=== PATIENT | female | born 1940 | race African-American/Black ===

== ENCOUNTER 2019-04-11 06:05 | Inpatient (IN) | payer MEDICARE, MEDICAID ==
[~2019-04-11] VITALS: Ht 170.2 cm; Wt 111.1 kg
[~2019-04-11 06:05] MED LIST: AMLO10TA80 PO; CALCIUM PO; CARI-166 PO; DOCU-138 PO; HYDR-3512 PO; HYDR-4135 PO; LISI40TA4 PO; METF-414 PO; METOPROLOL PO; ONDA4TAB5 PO; SIMV20TA6 PO
[2019-04-11] MEDS ORDERED: LACTATED RINGERS 1,000 ML IV SCH ×2 (07:00→08:30)
[2019-04-11] MEDS ORDERED: BUPIVACAINE/EPINEPH/PF 0.25%/0.0005 10ML ONE (07:12)
[2019-04-11] MEDS ORDERED: MORPHINE SULFATE/PF 1MG/ML 10ML AMP ONE (07:12)
[2019-04-11] MEDS ORDERED: METHYLENE BLUE 50 MG/10 ML AMP IV ONE (07:12)
[2019-04-11] MEDS ORDERED: NORMAL SALINE 0.9% 10 ML SYR ONE (07:13)
[2019-04-11] MEDS ORDERED: GENTAMICIN SULF 40MG/ML 2ML VIAL ONE (07:13)
[2019-04-11] MEDS ORDERED: VANCOMYCIN HCL 1 GM/VIAL ONE (07:13)
[2019-04-11] MEDS ORDERED: EPINEPHRINE 1:1000 1 MG/ML AMP ONE (07:13)
[2019-04-11] MEDS ORDERED: BACITRACIN 50,000 UNITS/VIAL ONE (07:14)
[2019-04-11] MEDS ORDERED: TRANEXAMIC ACID 1,000 MG in SODIUM CHLORIDE 0.9% 100 ML IV ONE (07:30)
[2019-04-11] MEDS ORDERED: LIDOCAINE HCL/PF 1% 10 MG/ML 5ML VIAL ONE (07:46)
[2019-04-11] MEDS ORDERED: DEXAMETHASONE 4MG/ML 1ML VIAL ONE (07:46)
[2019-04-11] MEDS ORDERED: PROPOFOL 200MG/20ML VIAL IV ONE (07:46)
[2019-04-11] MEDS ORDERED: MIDAZOLAM HCL 2 MG/2 ML VIAL ONE (07:46)
[2019-04-11] MEDS ORDERED: ONDANSETRON HCL 4MG/2ML INJ ONE (07:46)
[2019-04-11] MEDS ORDERED: ROCURONIUM BROMIDE 10MG/ML VIAL 5ML IV ONE ×2 (07:46→08:13)
[2019-04-11] MEDS ORDERED: EPHEDRINE SULFATE 50MG/ML VIAL ONE (07:46)
[2019-04-11] MEDS ORDERED: PHENYLEPHRINE HCL 10 MG/ML 1ML (IV VIAL) IV ONE (07:46)
[2019-04-11] MEDS ORDERED: SUCCINYLCHOLINE CHLORIDE 200MG/10ML IV ONE (07:46)
[2019-04-11] MEDS ORDERED: FENTANYL CITRATE/PF 50MCG/ML 2ML VIAL ONE (07:46)
[2019-04-11] MEDS ORDERED: CEFAZOLIN SODIUM 1000MG/VIAL ONE (07:46)
[2019-04-11] MEDS ORDERED: SODIUM CHLORIDE 0.9% 10ML VIAL ONE (07:46)
[2019-04-11] MEDS ORDERED: GLYCOPYRROLATE 0.2 MG/ML 2ML VIAL ONE (07:46)
[2019-04-11] MEDS ORDERED: NEOSTIGMINE METHYLSULFATE 1MG/ML 10 ML VIAL ONE (07:46)
[2019-04-11] MEDS ORDERED: METOCLOPRAMIDE HCL 10MG/2ML VIAL ONE (07:46)
[2019-04-11] MEDS ORDERED: ROPIVACAINE HCL 10MG/ML 20 ML VIAL EPI ONE (08:04)
[2019-04-11] MEDS ORDERED: HYDROMORPHONE HCL/PF 2MG/ML (OR) ONE (09:10)
[2019-04-11] MEDS ORDERED: THROMBIN (BOVINE) 5000 UNITS/VIAL TOP ONE (10:57)
[2019-04-11] MEDS ORDERED: MEPERIDINE HCL/PF 25MG/ML CPJ IV PRN ×2 (11:45)
[2019-04-11] MEDS ORDERED: MORPHINE SULFATE 2 MG/ML CPJ (NOT FOR IM USE) IV PRN (11:45)
[2019-04-11] MEDS ORDERED: ONDANSETRON HCL 4MG/2ML INJ IV PRN ×3 (11:45→16:30)
[2019-04-11] MEDS ORDERED: LABETALOL HCL 5MG/ML VIAL 20ML IV ONE (11:52)
[2019-04-11] MEDS ORDERED: SODIUM CHLORIDE 0.9% 1,000 ML IV ONE (12:00)
[2019-04-11] MEDS: HYDROMORPHONE HCL/PF 2MG/ML CPJ IV PRN ×4 (12:35→13:35)
[2019-04-11] MEDS ORDERED: HYDROMORPHONE PCA 10MG/50ML IV PRN (13:30)
[2019-04-11] MEDS ORDERED: NALOXONE INJ IV PRN (13:30)
[2019-04-11] MEDS ORDERED: ONDANSETRON INJ IV PRN (13:30)
[2019-04-11] MEDS ORDERED: DIPHENHYDRAMINE INJ IV PRN (13:30)
[2019-04-11] MEDS ORDERED: BENA40TA9 PO (14:04)
[2019-04-11] MEDS ORDERED: ATOR40TA70 PO (14:04)
[2019-04-11] MEDS ORDERED: OLME40TA18 PO (14:04)
[2019-04-11 16:10] VITALS: BP 155/66
[2019-04-11] MEDS ORDERED: MAGNESIUM HYDROXIDE 400MG/5ML 30ML UDC PO PRN (16:30)
[2019-04-11] MEDS ORDERED: HYDROCODONE/ACETAMINOPHEN 10/325MG TABLET PO PRN ×2 (16:30)
[2019-04-11] MEDS ORDERED: CLONIDINE 0.1MG TABLET PO PRN (16:30)
[2019-04-11] MEDS ORDERED: ACETAMINOPHEN 325MG TABLET PO PRN ×2 (16:30)
[2019-04-11] MEDS ORDERED: DIPHENHYDRAMINE 50MG/ML VIAL IM PRN (16:45)
[2019-04-11 20:00] VITALS: BP 142/70
[2019-04-11] MEDS: ATORVASTATIN CALCIUM 40MG TABLET PO SCH (20:47)
[2019-04-11] MEDS: DOCUSATE SODIUM 100MG CAPSULE PO SCH (20:47)
[2019-04-11] MEDS ORDERED: ZOLPIDEM TARTRATE 5MG TABLET PO PRN (21:00)
[2019-04-11] MEDS: CEFAZOLIN 2,000 MG in DEXT 5% WATER 100 ML IV SCH (23:19)
[2019-04-12] VITALS: BP 147/53
[2019-04-12 00:18] LABS: BASOPHILS % 0.3 % (0.0-2.0); EOSINOPHILS % 0.1 % (0.0-5.0); HEMATOCRIT. 30.4 % (36.0-48.0); HEMOGLOBIN. 9.6 g/dL (12.0-16.0); LYMPHOCYTES % 10.3 % (20.0-50.0); MEAN CORPUSCULAR HEMOGLOBIN 26.9 pg (28.0-32.0); MEAN CORPUSCULAR VOLUME 84.8 fL (81.0-99.0); MEAN PLATELET VOLUME 9.6 fl (7.4-10.4); MONOCYTES % 4.1 % (2.0-8.0); NEUTROPHILS % 85.2 % (40.0-76.0); PLATELET 143 x1000/uL (130-400); RED BLOOD CELL COUNT 3.59 mill/uL (4.2-5.4); RED CELL DISTRIBUTION WIDTH 16.4 % (11.6-14.6)
[2019-04-12] MEDS: IPRATROPIUM/ALBUTEROL 0.5-3(2.5)MG/3ML NEB NEB SCH ×4 (00:21→21:25)
[2019-04-12 00:28] LABS: CHLORIDE 113 mEq/L (98-107)
[2019-04-12] MEDS ORDERED: DEXTROSE 50% WATER 50ML SYRINGE IV PRN (01:30)
[2019-04-12 04:00] VITALS: BP 145/64
[2019-04-12] MEDS: CEFAZOLIN 2,000 MG in DEXT 5% WATER 100 ML IV SCH (05:16)
[2019-04-12] MEDS: HYDROCODONE/ACETAMINOPHEN 10/325MG TABLET PO PRN ×4 (05:18→22:18)
[2019-04-12] MEDS: INSULIN LISPRO 100 UNITS/ML SUBCUT SCH ×4 (06:41→21:00)
[2019-04-12 06:46] LABS: HEMATOCRIT. 30.3 % (36.0-48.0); HEMOGLOBIN. 9.6 g/dL (12.0-16.0); MEAN CORPUSCULAR HEMOGLOBIN 26.9 pg (28.0-32.0); MEAN CORPUSCULAR VOLUME 84.3 fL (81.0-99.0); MEAN PLATELET VOLUME 9.8 fl (7.4-10.4); MONOCYTES % 6.8 % (2.0-8.0); NEUTROPHILS % 83.2 % (40.0-76.0); PLATELET 142 x1000/uL (130-400); RED BLOOD CELL COUNT 3.59 mill/uL (4.2-5.4); RED CELL DISTRIBUTION WIDTH 16.7 % (11.6-14.6)
[2019-04-12 06:52] LABS: CHLORIDE 112 mEq/L (98-107)
[2019-04-12 07:06] LABS: LDL CHOLESTEROL 79 mg/dL (5-100)
[2019-04-12 07:07] LABS: HDL CHOLESTEROL 56 mg/dL (40-59)
[2019-04-12] MEDS: BLOOD SUGAR DIAGNOSTIC STRIP TEST SCH ×4 (07:20→21:00)
[2019-04-12 08:00] VITALS: BP 148/57
[2019-04-12] MEDS: DOCUSATE SODIUM 100MG CAPSULE PO SCH ×2 (09:09→16:07)
[2019-04-12] MEDS: AMLODIPINE 10MG TABLET PO SCH (09:10)
[2019-04-12] MEDS: ENOXAPARIN 30MG/0.3ML SYR SUBCUT SCH ×2 (09:11→21:40)
[2019-04-12] MEDS: LISINOPRIL 40MG TABLET PO SCH (09:12)
[2019-04-12 12:00] VITALS: BP 141/46
[2019-04-12 16:00] VITALS: BP 146/60
[2019-04-12 20:00] VITALS: BP 128/46
[2019-04-12] MEDS: ATORVASTATIN CALCIUM 40MG TABLET PO SCH (21:40)
[2019-04-13] VITALS (7 sets, daily range): BP systolic 120–133; BP diastolic 41–49
[2019-04-13] MEDS: IPRATROPIUM/ALBUTEROL 0.5-3(2.5)MG/3ML NEB NEB SCH ×3 (02:21→14:30)
[2019-04-13] MEDS: HYDROCODONE/ACETAMINOPHEN 10/325MG TABLET PO PRN ×2 (04:34→11:15)
[2019-04-13] MEDS: BLOOD SUGAR DIAGNOSTIC STRIP TEST SCH ×2 (07:08→12:38)
[2019-04-13 07:13] LABS: BASOPHILS % 0.3 % (0.0-2.0); EOSINOPHILS % 0.1 % (0.0-5.0); HEMATOCRIT. 25.5 % (36.0-48.0); HEMOGLOBIN. 8.3 g/dL (12.0-16.0); LYMPHOCYTES % 18.7 % (20.0-50.0); MEAN CORPUSCULAR HEMOGLOBIN 27.1 pg (28.0-32.0); MEAN CORPUSCULAR VOLUME 83.6 fL (81.0-99.0); MEAN PLATELET VOLUME 9.7 fl (7.4-10.4); MONOCYTES % 10.7 % (2.0-8.0); NEUTROPHILS % 70.2 % (40.0-76.0); PLATELET 131 x1000/uL (130-400); RED BLOOD CELL COUNT 3.05 mill/uL (4.2-5.4); RED CELL DISTRIBUTION WIDTH 16.5 % (11.6-14.6)
[2019-04-13 07:24] LABS: CHLORIDE 112 mEq/L (98-107)
[2019-04-13] MEDS: INSULIN LISPRO 100 UNITS/ML SUBCUT SCH (07:50)
[2019-04-13] MEDS: AMLODIPINE 10MG TABLET PO SCH (08:50)
[2019-04-13] MEDS: LISINOPRIL 40MG TABLET PO SCH (08:50)
[2019-04-13] MEDS: DOCUSATE SODIUM 100MG CAPSULE PO SCH (08:50)
[2019-04-13] MEDS: ENOXAPARIN 30MG/0.3ML SYR SUBCUT SCH (08:51)
== END 2019-04-13 16:06 | disposition home or self-care (01) | DRG 470 ==
LOC: OR 06:05 → 6EST 19:02
PROVIDERS: ADMIT Orthopaedic Surgery; ATTEND Orthopaedic Surgery
PROC: 0SRC0J9 Replacement of Right Knee Joint with Synthetic Substitute, Cemented, Open Approach (ICD-10-PCS; principal; 2019-04-11)
DX: M17.0 Bilateral primary osteoarthritis of knee (principal); R71.0 Precipitous drop in hematocrit; M75.100 Unspecified rotator cuff tear or rupture of unspecified shoulder, not specified as traumatic; E11.9 Type 2 diabetes mellitus without complications; E66.01 Morbid (severe) obesity due to excess calories; E78.5 Hyperlipidemia, unspecified; I10 Essential (primary) hypertension; G89.29 Other chronic pain; G51.0 Bell's palsy; Z90.10 Acquired absence of unspecified breast and nipple; Z98.51 Tubal ligation status; Z68.38 Body mass index [BMI] 38.0-38.9, adult; Z79.899 Other long term (current) drug therapy
CPT/HCPCS: 36415; 73560; 80048; 80061; 82962; 86850; 86900; 88305; 88311; 93005; 93970; 94640; 97110; 97116; 97162; 97167; 97530; C1713; C1776; J0171; J0330; J0690; J1100; J1170; J1580; J1650; J1815; J2250; J2274; J2370; J2405; J2704; J2710; J2765; J2795; J3010; J3370; J3490; J7050; J7060; J7620; L1830; Q9968

== ENCOUNTER 2019-05-02 19:07 | Emergency (ER) | payer MEDICARE, MEDICAID ==
[~2019-05-02] VITALS: Ht 170.2 cm; Wt 112.0 kg
[~2019-05-02 19:07] MED LIST changes: +ATOR40TA70 PO; +BENA40TA9 PO; -HYDR-4135 PO; -LISI40TA4 PO; -METOPROLOL PO; +OLME40TA18 PO; -SIMV20TA6 PO
[2019-05-02 21:06] LABS: BASOPHILS % 0.8 % (0.0-2.0); HEMATOCRIT. 29.4 % (36.0-48.0); HEMOGLOBIN. 9.3 g/dL (12.0-16.0); LYMPHOCYTES % 23.5 % (20.0-50.0); MEAN CORPUSCULAR HEMOGLOBIN 26.7 pg (28.0-32.0); MEAN CORPUSCULAR VOLUME 84.3 fL (81.0-99.0); MEAN PLATELET VOLUME 8.7 fl (7.4-10.4); MONOCYTES % 8.5 % (2.0-8.0); NEUTROPHILS % 61.2 % (40.0-76.0); PLATELET 299 x1000/uL (130-400); RED BLOOD CELL COUNT 3.48 mill/uL (4.2-5.4); RED CELL DISTRIBUTION WIDTH 17.5 % (11.6-14.6)
[2019-05-02 21:11] LABS: CHLORIDE 109 mEq/L (98-107)
[2019-05-02] MEDS ORDERED: HYDROCODONE/ACETAMINOPHEN 5/325MG TABLET PO ONE (21:45)
[2019-05-02] MEDS ORDERED: KETOROLAC 15MG/ML VIAL IV ONE (21:45)
[2019-05-02 23:48] VITALS: BP 167/58
== END 2019-05-02 23:53 | disposition home or self-care (01) ==
LOC: ER 19:07
DX: D64.9 Anemia, unspecified (principal); R42 Dizziness and giddiness; E11.9 Type 2 diabetes mellitus without complications; I10 Essential (primary) hypertension; Z87.891 Personal history of nicotine dependence; Z79.84 Long term (current) use of oral hypoglycemic drugs; Z79.899 Other long term (current) drug therapy; Z85.9 Personal history of malignant neoplasm, unspecified
CPT/HCPCS: 36415; 71045; 80053; 83880; 84484; 85025; 86850; 86900; 86901; 93005; 96374; 99284; J1885

== ENCOUNTER → 2020-03-12 | Outpatient (CLI) | payer MEDICARE, MEDICAID ==
[~2020-03-12] MED LIST changes: -CARI-166 PO; +CARI350T28 PO
== END | disposition home or self-care (01) ==
LOC: MRI 07:30
PROVIDERS: ATTEND Neurological Surgery
DX: M47.812 Spondylosis without myelopathy or radiculopathy, cervical region (principal); M48.03 Spinal stenosis, cervicothoracic region; N20.0 Calculus of kidney
CPT/HCPCS: 72141; 72146

== ENCOUNTER → 2020-04-06 | Outpatient (CLI) | payer MEDICARE, MEDICAID ==
[~2020-04-06] MED LIST changes: +AMLO10TA80 MT; +BACITRACIN 50,000 UNITS/VIAL ONE; +CHOL500063 PO; +CLON0.1T PO; +HYDR-4005 PO; +LINA290C PO; +THROMBIN (BOVINE) 5000 UNITS/VIAL TOP ONE
== END | disposition home or self-care (01) ==
LOC: LAB 12:00
PROVIDERS: ATTEND Neurological Surgery
DX: Z01.812 Encounter for preprocedural laboratory examination (principal); Z20.828 Contact with and (suspected) exposure to other viral communicable diseases
CPT/HCPCS: C9803; U0003

== ENCOUNTER 2020-04-08 05:20 | Inpatient (IN) | payer MEDICARE, MEDICAID ==
[2020-04-08] VITALS (61 sets, daily range): BP systolic 66–153; BP diastolic 21–75
[~2020-04-08] VITALS: Ht 167.6 cm; Wt 127.0 kg
[~2020-04-08 05:20] MED LIST changes: -AMLO10TA80 MT; -BACITRACIN 50,000 UNITS/VIAL ONE; -CHOL500063 PO; -CLON0.1T PO; -HYDR-4005 PO; -LINA290C PO; -THROMBIN (BOVINE) 5000 UNITS/VIAL TOP ONE
[2020-04-08] MEDS ORDERED: LACTATED RINGERS 1,000 ML IV SCH (06:15)
[2020-04-08] MEDS ORDERED: ONDANSETRON HCL 4MG/2ML INJ IV PRN (09:00)
[2020-04-08] MEDS ORDERED: CLON0.1T PO (09:22)
[2020-04-08] MEDS ORDERED: LINA290C PO (09:22)
[2020-04-08] MEDS ORDERED: HYDR-4005 PO (09:22)
[2020-04-08] MEDS ORDERED: CHOL500063 PO (09:22)
[2020-04-08] MEDS: MORPHINE SULFATE 4 MG/ML CPJ (NOT FOR IM USE) IV PRN (09:39)
[2020-04-08] MEDS: NICARDIPINE 100 MG in SODIUM CHLORIDE 0.9% 60 ML IV PRN ×2 (10:04→17:58)
[2020-04-08] MEDS: DEXT 5%/LACTATED RINGERS 1,000 ML IV SCH ×2 (10:05→18:00)
[2020-04-08] MEDS ORDERED: NALOXONE INJ IV PRN (10:15)
[2020-04-08] MEDS ORDERED: ONDANSETRON INJ IV PRN (10:15)
[2020-04-08] MEDS: HYDROMORPHONE PCA 10MG/50ML IV PRN (10:20)
[2020-04-08] MEDS ORDERED: IPRATROPIUM/ALBUTEROL 0.5-3(2.5)MG/3ML NEB HHN PRN (11:00)
[2020-04-08] MEDS ORDERED: DEXTROSE 50% WATER 50ML SYRINGE IV PRN ×2 (12:30)
[2020-04-08] MEDS ORDERED: PNEUMOCOCCAL 23-VAL P-SAC VAC 0.5 ML IM ONE (13:30)
[2020-04-08] MEDS: DEXAMETHASONE 4MG/ML 1ML VIAL IV SCH ×2 (13:44→17:49)
[2020-04-08] MEDS: CEFAZOLIN 1000MG PREMIX 50 ML IV SCH ×2 (13:46→21:44)
[2020-04-08] MEDS ORDERED: CEFAZOLIN SODIUM 1000MG/VIAL IV SCH (14:00)
[2020-04-08 15:19] LABS: HEMATOCRIT. 32.3 % (36.0-48.0); HEMOGLOBIN. 10.3 g/dL (12.0-16.0); MEAN CORPUSCULAR HEMOGLOBIN 27.5 pg (28.0-32.0); MEAN PLATELET VOLUME 9.3 fl (7.4-10.4); PLATELET 175 x1000/uL (130-400); RED BLOOD CELL COUNT 3.76 mill/uL (4.2-5.4)
[2020-04-08 15:21] LABS: CHLORIDE 108 mEq/L (98-107)
[2020-04-08 15:57] LABS: PLATELET ESTIMATE NORMAL
[2020-04-08] MEDS: BLOOD SUGAR DIAGNOSTIC STRIP TEST SCH ×2 (16:31→21:39)
[2020-04-08] MEDS: INSULIN LISPRO 100 UNITS/ML SUBCUT SCH ×2 (16:44→21:44)
[2020-04-08] MEDS: IPRATROPIUM/ALBUTEROL 0.5-3(2.5)MG/3ML NEB HHN SCH (21:04)
[2020-04-09] VITALS (110 sets, daily range): BP systolic 90–144; BP diastolic 37–77
[2020-04-09] MEDS: DEXAMETHASONE 4MG/ML 1ML VIAL IV SCH ×3 (00:10→12:22)
[2020-04-09] MEDS: NICARDIPINE 100 MG in SODIUM CHLORIDE 0.9% 60 ML IV PRN ×3 (02:31→21:15)
[2020-04-09] MEDS: DEXT 5%/LACTATED RINGERS 1,000 ML IV SCH ×2 (05:02→13:48)
[2020-04-09] MEDS: CEFAZOLIN 1000MG PREMIX 50 ML IV SCH ×3 (05:02→21:14)
[2020-04-09] MEDS: BLOOD SUGAR DIAGNOSTIC STRIP TEST SCH ×4 (06:03→21:09)
[2020-04-09] MEDS: INSULIN LISPRO 100 UNITS/ML SUBCUT SCH ×4 (06:07→21:16)
[2020-04-09 06:36] LABS: CHLORIDE 108 mEq/L (98-107); HEMATOCRIT. 29.9 % (36.0-48.0); HEMOGLOBIN. 9.6 g/dL (12.0-16.0); MEAN CORPUSCULAR HEMOGLOBIN 27.3 pg (28.0-32.0); MEAN CORPUSCULAR VOLUME 84.5 fL (81.0-99.0); MEAN PLATELET VOLUME 9.7 fl (7.4-10.4); PLATELET 189 x1000/uL (130-400); RED BLOOD CELL COUNT 3.53 mill/uL (4.2-5.4)
[2020-04-09] MEDS: PANTOPRAZOLE SODIUM 40 MG/VIAL IV SCH (08:00)
[2020-04-09] MEDS: HYDROMORPHONE PCA 10MG/50ML IV PRN (08:04)
[2020-04-09] MEDS: IPRATROPIUM/ALBUTEROL 0.5-3(2.5)MG/3ML NEB HHN SCH ×3 (08:16→20:10)
[2020-04-09] MEDS ORDERED: AMLO10TA80 MT (08:24)
[2020-04-09] MEDS: LOSARTAN POTASSIUM 100 MG TABLET PO SCH (10:35)
[2020-04-09] MEDS: AMLODIPINE 10MG TABLET PO SCH (10:35)
[2020-04-09] MEDS: CLONIDINE 0.1MG TABLET PO SCH ×2 (10:35→21:15)
[2020-04-09 11:37] LABS: PLATELET ESTIMATE NORMAL
[2020-04-09] MEDS: ATORVASTATIN CALCIUM 40MG TABLET PO SCH (21:14)
[2020-04-10] VITALS (44 sets, daily range): BP systolic 91–146; BP diastolic 32–61
[2020-04-10] MEDS: DEXT 5%/LACTATED RINGERS 1,000 ML IV SCH ×2 (01:03→12:47)
[2020-04-10] MEDS: IPRATROPIUM/ALBUTEROL 0.5-3(2.5)MG/3ML NEB HHN SCH ×4 (01:56→21:12)
[2020-04-10 05:38] LABS: HEMATOCRIT. 28.2 % (36.0-48.0); MEAN CORPUSCULAR HEMOGLOBIN 27.2 pg (28.0-32.0); MEAN CORPUSCULAR VOLUME 85.2 fL (81.0-99.0); MEAN PLATELET VOLUME 9.7 fl (7.4-10.4); PLATELET 181 x1000/uL (130-400); RED BLOOD CELL COUNT 3.31 mill/uL (4.2-5.4); RED CELL DISTRIBUTION WIDTH 17.1 % (11.6-14.6)
[2020-04-10 05:46] LABS: CHLORIDE 108 mEq/L (98-107)
[2020-04-10] MEDS: BLOOD SUGAR DIAGNOSTIC STRIP TEST SCH ×4 (05:54→21:00)
[2020-04-10] MEDS: INSULIN LISPRO 100 UNITS/ML SUBCUT SCH ×4 (06:01→20:59)
[2020-04-10] MEDS: CEFAZOLIN 1000MG PREMIX 50 ML IV SCH ×3 (06:01→21:53)
[2020-04-10] MEDS: AMLODIPINE 10MG TABLET PO SCH (08:00)
[2020-04-10] MEDS: LOSARTAN POTASSIUM 100 MG TABLET PO SCH (08:00)
[2020-04-10] MEDS: CLONIDINE 0.1MG TABLET PO SCH ×2 (08:01→20:46)
[2020-04-10] MEDS: PANTOPRAZOLE SODIUM 40 MG/VIAL IV SCH (08:01)
[2020-04-10 10:45] LABS: PLATELET ESTIMATE NORMAL
[2020-04-10] MEDS: MORPHINE SULFATE 4 MG/ML CPJ (NOT FOR IM USE) IV PRN ×5 (12:48→23:47)
[2020-04-10] MEDS: ATORVASTATIN CALCIUM 40MG TABLET PO SCH (20:46)
[2020-04-11] VITALS (7 sets, daily range): BP systolic 120–132; BP diastolic 56–63
[2020-04-11] MEDS: DEXT 5%/LACTATED RINGERS 1,000 ML IV SCH ×2 (02:40→09:38)
[2020-04-11] MEDS: MORPHINE SULFATE 4 MG/ML CPJ (NOT FOR IM USE) IV PRN ×4 (02:41→14:11)
[2020-04-11] MEDS: IPRATROPIUM/ALBUTEROL 0.5-3(2.5)MG/3ML NEB HHN SCH ×3 (02:51→15:09)
[2020-04-11] MEDS: BLOOD SUGAR DIAGNOSTIC STRIP TEST SCH ×4 (06:30→21:47)
[2020-04-11] MEDS: CEFAZOLIN 1000MG PREMIX 50 ML IV SCH ×3 (06:30→21:04)
[2020-04-11] MEDS: INSULIN LISPRO 100 UNITS/ML SUBCUT SCH ×4 (06:55→21:00)
[2020-04-11] MEDS: CLONIDINE 0.1MG TABLET PO SCH ×2 (09:37→21:01)
[2020-04-11] MEDS: PANTOPRAZOLE SODIUM 40 MG/VIAL IV SCH (09:37)
[2020-04-11] MEDS: LOSARTAN POTASSIUM 100 MG TABLET PO SCH (09:37)
[2020-04-11] MEDS: AMLODIPINE 10MG TABLET PO SCH (09:37)
[2020-04-11] MEDS ORDERED: AMLODIPINE 10MG TABLET PO ONE (12:00)
[2020-04-11] MEDS ORDERED: DEXTROSE 50% WATER 50ML SYRINGE IV PRN (12:00)
[2020-04-11] MEDS ORDERED: INSULIN LISPRO 100 UNITS/ML SUBCUT SCH (12:15)
[2020-04-11] MEDS: HYDROCODONE/ACETAMINOPHEN 5/325MG TABLET PO PRN ×2 (15:44→21:04)
[2020-04-11] MEDS ORDERED: BLOOD SUGAR DIAGNOSTIC STRIP TEST SCH (16:45)
[2020-04-11] MEDS ORDERED: LACTULOSE 20G/30ML UDC PO NR (17:14)
[2020-04-11] MEDS ORDERED: BISACODYL 5MG TABLET PO PRN (17:15)
[2020-04-11] MEDS: DOCUSATE SODIUM 250MG CAPSULE PO SCH (18:24)
[2020-04-11] MEDS: ATORVASTATIN CALCIUM 40MG TABLET PO SCH (21:00)
[2020-04-12] VITALS (7 sets, daily range): BP systolic 118–142; BP diastolic 54–82
[2020-04-12] MEDS: IPRATROPIUM/ALBUTEROL 0.5-3(2.5)MG/3ML NEB HHN SCH ×4 (00:08→13:40)
[2020-04-12] MEDS: HYDROCODONE/ACETAMINOPHEN 5/325MG TABLET PO PRN ×3 (02:10→10:24)
[2020-04-12] MEDS: CEFAZOLIN 1000MG PREMIX 50 ML IV SCH ×2 (06:01→13:52)
[2020-04-12] MEDS: BLOOD SUGAR DIAGNOSTIC STRIP TEST SCH ×3 (06:04→16:39)
[2020-04-12] MEDS: INSULIN LISPRO 100 UNITS/ML SUBCUT SCH ×3 (06:04→16:39)
[2020-04-12] MEDS: DOCUSATE SODIUM 250MG CAPSULE PO SCH (08:46)
[2020-04-12] MEDS: CLONIDINE 0.1MG TABLET PO SCH (08:46)
[2020-04-12] MEDS: PANTOPRAZOLE SODIUM 40 MG/VIAL IV SCH (08:46)
[2020-04-12] MEDS: LOSARTAN POTASSIUM 100 MG TABLET PO SCH (08:46)
[2020-04-12] MEDS: AMLODIPINE 10MG TABLET PO SCH (08:47)
[2020-04-12] MEDS ORDERED: HYDROCODONE/APAP 7.5/325MG 1 TAB TABLET PO PRN (14:15)
[2020-04-12] MEDS: LACTULOSE 20G/30ML UDC PO SCH ×2 (14:19→16:39)
[2020-04-12] MEDS ORDERED: POLYETHYLENE GLYCOL 3350 (17GM) 1 DOSE PACK PO SCH (21:00)
[2020-04-13] MEDS ORDERED: DOCUSATE SODIUM 100MG CAPSULE PO SCH (09:00)
== END 2020-04-12 20:30 | DRG 471 ==
LOC: OR 05:20 → MICUNO 05:21 → 5WST 04-10 12:08
PROVIDERS: ADMIT Internal Medicine; ATTEND Internal Medicine
PROC: 0RG20J1 Fusion of 2 or more Cervical Vertebral Joints with Synthetic Substitute, Posterior Approach, Posterior Column, Open Approach (ICD-10-PCS; principal; 2020-04-08)
PROC: 01N10ZZ Release Cervical Nerve, Open Approach (ICD-10-PCS; 2020-04-08)
DX: M48.02 Spinal stenosis, cervical region (principal); G82.50 Quadriplegia, unspecified; M47.12 Other spondylosis with myelopathy, cervical region; Z68.42 Body mass index [BMI] 45.0-49.9, adult; M50.10 Cervical disc disorder with radiculopathy, unspecified cervical region; I10 Essential (primary) hypertension; E78.5 Hyperlipidemia, unspecified; E11.9 Type 2 diabetes mellitus without complications; C50.919 Malignant neoplasm of unspecified site of unspecified female breast; D64.9 Anemia, unspecified; R13.10 Dysphagia, unspecified; R53.81 Other malaise; D72.829 Elevated white blood cell count, unspecified; G89.4 Chronic pain syndrome; K59.00 Constipation, unspecified; E66.01 Morbid (severe) obesity due to excess calories; Z96.651 Presence of right artificial knee joint; Z85.3 Personal history of malignant neoplasm of breast; Z79.899 Other long term (current) drug therapy
CPT/HCPCS: 36415; 71045; 72040; 72141; 76000; 80048; 80053; 82962; 83036; 85025; 86850; 86900; 88304; 88311; 92610; 93970; 93971; 94640; 97110; 97116; 97162; 97166; 97530; 97535; C1713; C9113; J0690; J1100; J1170; J1815; J2250; J2270; J2405; J2704; J2710; J3010; J3490; J7050; J7121; L0172

== ENCOUNTER → 2020-06-21 | Outpatient (CLI) | payer MEDICARE, MEDICAID ==
[~2020-06-21] MED LIST changes: -CALCIUM PO; -CARI350T28 PO; +CHOL500063 PO; +CLON0.1T PO; -DOCU-138 PO; -HYDR-3512 PO; +HYDR-4005 PO; +LINA290C PO; -METF-414 PO; -ONDA4TAB5 PO
== END | disposition home or self-care (01) ==
LOC: RAD 16:26
PROVIDERS: ATTEND Neurological Surgery
DX: M43.12 Spondylolisthesis, cervical region (principal); M40.202 Unspecified kyphosis, cervical region
CPT/HCPCS: 72052

== ENCOUNTER → 2020-08-22 | Outpatient (CLI) | payer MEDICARE, MEDICAID | END | disposition home or self-care (01) | LOC: MRI 12:54 | PROVIDERS: ATTEND Neurological Surgery | DX: M51.27 Other intervertebral disc displacement, lumbosacral region (principal); M51.46 Schmorl's nodes, lumbar region; M47.816 Spondylosis without myelopathy or radiculopathy, lumbar region; M48.061 Spinal stenosis, lumbar region without neurogenic claudication | CPT/HCPCS: 72148 ==

== ENCOUNTER → 2020-09-11 | Outpatient (CLI) | payer MEDICARE, MEDICAID | END | disposition home or self-care (01) | LOC: MRI 10:46 | PROVIDERS: ATTEND Neurological Surgery | DX: M50.31 Other cervical disc degeneration, high cervical region (principal); M25.78 Osteophyte, vertebrae; M50.23 Other cervical disc displacement, cervicothoracic region; M48.03 Spinal stenosis, cervicothoracic region | CPT/HCPCS: 72141 ==

== ENCOUNTER → 2020-10-18 | Outpatient (CLI) | payer MEDICARE, MEDICAID | END | disposition home or self-care (01) | LOC: RAD 13:40 | PROVIDERS: ATTEND Neurological Surgery | DX: Z01.812 Encounter for preprocedural laboratory examination (principal); Z20.822 Contact with and (suspected) exposure to COVID-19 | CPT/HCPCS: 71045; 87426 ==

== ENCOUNTER 2020-10-21 05:42 | Inpatient (IN) | payer MEDICARE, MEDICAID ==
[~2020-10-21] VITALS: Ht 165.1 cm; Wt 112.5 kg
[2020-10-21] MEDS ORDERED: THROMBIN (BOVINE) 5000 UNITS/VIAL TOP ONE (06:35)
[2020-10-21] MEDS ORDERED: GENTAMICIN SULF 40MG/ML 2ML VIAL ONE (06:35)
[2020-10-21] MEDS ORDERED: ROCURONIUM BROMIDE 10MG/ML VIAL 5ML IV ONE ×2 (07:23→09:07)
[2020-10-21] MEDS ORDERED: HYDROMORPHONE HCL/PF 2MG/ML (OR) ONE (07:23)
[2020-10-21] MEDS ORDERED: ALBUMIN HUMAN 25GM/100ML (25%) IV ONE (07:39)
[2020-10-21] MEDS ORDERED: CEFAZOLIN SODIUM 1000MG/VIAL ONE (08:47)
[2020-10-21] MEDS ORDERED: HYDRALAZINE 20MG/ML VIAL ONE (08:47)
[2020-10-21] MEDS ORDERED: DEXAMETHASONE 4MG/ML 1ML VIAL ONE (08:47)
[2020-10-21] MEDS ORDERED: EPHEDRINE SULFATE 50MG/ML VIAL ONE (08:47)
[2020-10-21] MEDS ORDERED: HYDR25TA PO (09:19)
[2020-10-21] MEDS ORDERED: GABA-290 PO (09:19)
[2020-10-21] MEDS ORDERED: ERGO500013 PO (09:21)
[2020-10-21] MEDS ORDERED: NEOSTIGMINE METHYLSULFATE 1MG/ML 10 ML VIAL ONE (09:37)
[2020-10-21] MEDS ORDERED: GLYCOPYRROLATE 0.2 MG/ML 2ML VIAL ONE (09:37)
[2020-10-21] MEDS ORDERED: LABETALOL HCL 5MG/ML VIAL 20ML IV ONE (09:40)
[2020-10-21] MEDS ORDERED: HYDROCODONE/ACETAMINOPHEN 5/325MG TABLET PO PRN (09:45)
[2020-10-21] MEDS ORDERED: MORPHINE SULFATE 4 MG/ML CPJ (NOT FOR IM USE) IV PRN (09:45)
[2020-10-21] MEDS ORDERED: HYDRALAZINE 20MG/ML VIAL IV PRN (09:45)
[2020-10-21] MEDS ORDERED: MEPERIDINE HCL/PF 25MG/ML CPJ IV PRN (10:00)
[2020-10-21] MEDS ORDERED: ONDANSETRON HCL 4MG/2ML INJ IV PRN (10:00)
[2020-10-21] MEDS ORDERED: LABETALOL 5MG/ML SYR 20 MG/4 ML SYRINGE IV PRN (10:00)
[2020-10-21] MEDS ORDERED: NALOXONE INJ IV PRN (10:30)
[2020-10-21] MEDS ORDERED: ONDANSETRON INJ IV PRN (10:30)
[2020-10-21] MEDS ORDERED: DIPHENHYDRAMINE INJ IV PRN (10:30)
[2020-10-21] MEDS: HYDROMORPHONE HCL/PF 2MG/ML CPJ IV PRN ×5 (10:33→11:28)
[2020-10-21] MEDS: HYDROMORPHONE PCA 10MG/50ML IV PRN (12:04)
[2020-10-21 12:55] VITALS: BP 136/51
[2020-10-21] MEDS ORDERED: CEFAZOLIN SODIUM 1000MG/VIAL IV SCH (14:00)
[2020-10-21] MEDS ORDERED: BLOOD PRESSURE (15:00)
[2020-10-21] MEDS ORDERED: CHOL400D7 PO (15:00)
[2020-10-21 16:00] VITALS: BP 115/57
[2020-10-21] MEDS ORDERED: IPRATROPIUM/ALBUTEROL 0.5-3(2.5)MG/3ML NEB HHN PRN (16:00)
[2020-10-21] MEDS: CEFAZOLIN 1000MG PREMIX 50 ML IV SCH ×2 (16:05→23:14)
[2020-10-21 20:00] VITALS: BP 125/50
[2020-10-21] MEDS: AMLODIPINE 10MG TABLET PO SCH (23:13)
[2020-10-21] MEDS: BENAZEPRIL 10MG TABLET PO SCH (23:14)
[2020-10-22] VITALS: BP 129/58
[2020-10-22 04:00] VITALS: BP 136/56
[2020-10-22] MEDS: DEXT 5%/LACTATED RINGERS 1,000 ML IV SCH ×2 (04:19→15:31)
[2020-10-22] MEDS: CEFAZOLIN 1000MG PREMIX 50 ML IV SCH ×3 (06:06→22:05)
[2020-10-22 06:35] LABS: HEMATOCRIT. 27.5 % (36.0-48.0); HEMOGLOBIN. 8.6 g/dL (12.0-16.0); LYMPHOCYTES % 7.2 % (20.0-50.0); MEAN CORPUSCULAR HEMOGLOBIN 25.4 pg (28.0-32.0); MEAN CORPUSCULAR VOLUME 81.5 fL (81.0-99.0); MEAN PLATELET VOLUME 9.5 fl (7.4-10.4); NEUTROPHILS % 89.8 % (40.0-76.0); PLATELET 132 x1000/uL (130-400); RED BLOOD CELL COUNT 3.37 mill/uL (4.2-5.4)
[2020-10-22 08:00] VITALS: BP 120/40
[2020-10-22] MEDS ORDERED: LACTULOSE 20G/30ML UDC PO PRN (09:30)
[2020-10-22] MEDS ORDERED: SODIUM POLYSTYRENE SULFONATE 15 G/60 ML BOT PO ONE (09:30)
[2020-10-22] MEDS: BENAZEPRIL 10MG TABLET PO SCH (09:31)
[2020-10-22] MEDS: AMLODIPINE 10MG TABLET PO SCH (09:32)
[2020-10-22] MEDS ORDERED: SODIUM POLYSTYRENE SULFONATE 15 G/60 ML BOT PO SCH (10:00)
[2020-10-22 12:00] VITALS: BP 140/64
[2020-10-22 16:00] VITALS: BP 136/51
[2020-10-22 20:00] VITALS: BP 145/67
[2020-10-23] VITALS (7 sets, daily range): BP systolic 116–157; BP diastolic 46–66
[2020-10-23] MEDS: DEXT 5%/LACTATED RINGERS 1,000 ML IV SCH ×3 (02:49→22:00)
[2020-10-23] MEDS ORDERED: ACETAMINOPHEN 325MG TABLET PO PRN (04:00)
[2020-10-23] MEDS: ACETAMINOPHEN 325MG TABLET PO PRN ×3 (04:02→19:01)
[2020-10-23] MEDS: CEFAZOLIN 1000MG PREMIX 50 ML IV SCH (06:09)
[2020-10-23 06:23] LABS: BASOPHILS % 0.1 % (0.0-2.0); EOSINOPHILS % 0.1 % (0.0-5.0); HEMATOCRIT. 27.1 % (36.0-48.0); HEMOGLOBIN. 8.5 g/dL (12.0-16.0); LYMPHOCYTES % 14.5 % (20.0-50.0); MEAN CORPUSCULAR HEMOGLOBIN 25.6 pg (28.0-32.0); MEAN CORPUSCULAR VOLUME 81.2 fL (81.0-99.0); MEAN PLATELET VOLUME 9.6 fl (7.4-10.4); MONOCYTES % 7.7 % (2.0-8.0); NEUTROPHILS % 77.6 % (40.0-76.0); PLATELET 127 x1000/uL (130-400); RED BLOOD CELL COUNT 3.34 mill/uL (4.2-5.4); RED CELL DISTRIBUTION WIDTH 17.6 % (11.6-14.6)
[2020-10-23 06:29] LABS: CHLORIDE 108 mEq/L (98-107)
[2020-10-23 06:50] LABS: CLARITY URINE CLEAR (CLEAR); COLOR URINE YELLOW (YELLOW); KETONES URINE NEGATIVE (NEGATIVE); LEUKOCYTE ESTERASE URINE NEGATIVE (NEGATIVE); NITRITE URINE NEGATIVE (NEGATIVE); OCCULT BLOOD URINE 1+ (NEGATIVE); PH URINE 7.5 (4.5-8.0); PROTEIN URINE NEGATIVE (NEGATIVE); SPECIFIC GRAVITY URINE 1.007 (1.005-1.030); UROBILINOGEN URINE 0.2 E.U./dL (0.2-1.0)
[2020-10-23] MEDS: AMLODIPINE 10MG TABLET PO SCH (10:46)
[2020-10-23] MEDS: BENAZEPRIL 10MG TABLET PO SCH (10:46)
[2020-10-23 11:07] LABS: HEMATOCRIT 27.1 % (36.0-48.0); HEMOGLOBIN 8.6 g/dL (12.0-16.0); MEAN CORPUSCULAR HEMOGLOBIN 26.2 pg (28.0-32.0); MEAN CORPUSCULAR VOLUME 82.1 fL (81.0-99.0); PLATELET 130 x1000/uL (130-400); RED BLOOD CELL COUNT 3.29 mill/uL (4.2-5.4); RED CELL DISTRIBUTION WIDTH 17.6 % (11.6-14.6)
[2020-10-23] MEDS: PIPERACILLIN/TAZOBACTAM 3.375 G in DEXT 5% WATER 100 ML IV SCH ×2 (13:15→17:36)
[2020-10-23] MEDS ORDERED: PIPERACILLIN/TAZOBACTAM 3.375 G/VIAL IV SCH (14:00)
[2020-10-23] MEDS ORDERED: HYDRALAZINE 5 MG in SODIUM CHLORIDE 0.9% 49.75 ML IV PRN (21:15)
[2020-10-24] VITALS (8 sets, daily range): BP systolic 100–165; BP diastolic 42–71
[2020-10-24] MEDS: PIPERACILLIN/TAZOBACTAM 3.375 G in DEXT 5% WATER 100 ML IV SCH ×4 (00:32→17:52)
[2020-10-24] MEDS: ACETAMINOPHEN 325MG TABLET PO PRN (04:52)
[2020-10-24] MEDS: DEXT 5%/LACTATED RINGERS 1,000 ML IV SCH (08:56)
[2020-10-24] MEDS: BENAZEPRIL 10MG TABLET PO SCH (08:57)
[2020-10-24] MEDS: AMLODIPINE 10MG TABLET PO SCH (08:57)
[2020-10-24] MEDS ORDERED: LACTULOSE 20G/30ML UDC PO PRN (09:45)
[2020-10-24] MEDS: HYDROMORPHONE PCA 10MG/50ML IV PRN (10:47)
[2020-10-24] MEDS: PANTOPRAZOLE SODIUM 40 MG/VIAL IV SCH (12:28)
[2020-10-25] VITALS (8 sets, daily range): BP systolic 97–159; BP diastolic 41–66
[2020-10-25] MEDS: PIPERACILLIN/TAZOBACTAM 3.375 G in DEXT 5% WATER 100 ML IV SCH ×2 (00:24→06:33)
[2020-10-25] MEDS: ACETAMINOPHEN 325MG TABLET PO PRN (00:34)
[2020-10-25] MEDS: DEXT 5%/LACTATED RINGERS 1,000 ML IV SCH (03:00)
[2020-10-25 07:45] LABS: BASOPHILS % 0.4 % (0.0-2.0); EOSINOPHILS % 2.5 % (0.0-5.0); HEMATOCRIT. 27.2 % (36.0-48.0); HEMOGLOBIN. 8.8 g/dL (12.0-16.0); MEAN CORPUSCULAR HEMOGLOBIN 25.8 pg (28.0-32.0); MEAN PLATELET VOLUME 9.5 fl (7.4-10.4); MONOCYTES % 7.5 % (2.0-8.0); NEUTROPHILS % 63.6 % (40.0-76.0); PLATELET 148 x1000/uL (130-400); RED CELL DISTRIBUTION WIDTH 16.9 % (11.6-14.6)
[2020-10-25] MEDS: AMLODIPINE 10MG TABLET PO SCH (09:00)
[2020-10-25] MEDS: BENAZEPRIL 10MG TABLET PO SCH (09:00)
[2020-10-25] MEDS ORDERED: POTASSIUM CHLORIDE 20MEQ TABLET SR PO NR (09:30)
[2020-10-25] MEDS: PANTOPRAZOLE SODIUM 40 MG/VIAL IV SCH (10:00)
== END 2020-10-25 21:43 | DRG 516 ==
LOC: OR 05:42 → 6EST 12:49
PROVIDERS: ADMIT Neurological Surgery; ATTEND Neurological Surgery
PROC: 01NB0ZZ Release Lumbar Nerve, Open Approach (ICD-10-PCS; principal; 2020-10-21)
PROC: 4A11X4Z Monitoring of Peripheral Nervous Electrical Activity, External Approach (ICD-10-PCS; 2020-10-21)
DX: M48.061 Spinal stenosis, lumbar region without neurogenic claudication (principal); Z68.41 Body mass index [BMI] 40.0-44.9, adult; J98.11 Atelectasis; M54.16 Radiculopathy, lumbar region; I12.9 Hypertensive chronic kidney disease with stage 1 through stage 4 chronic kidney disease, or unspecified chronic kidney disease; N18.9 Chronic kidney disease, unspecified; E87.5 Hyperkalemia; M19.019 Primary osteoarthritis, unspecified shoulder; E66.01 Morbid (severe) obesity due to excess calories; G89.4 Chronic pain syndrome; D64.9 Anemia, unspecified; E11.22 Type 2 diabetes mellitus with diabetic chronic kidney disease; E78.5 Hyperlipidemia, unspecified; R32 Unspecified urinary incontinence; Z96.651 Presence of right artificial knee joint; Z85.3 Personal history of malignant neoplasm of breast
CPT/HCPCS: 36415; 71045; 72100; 76000; 80048; 81003; 82962; 85025; 85027; 86850; 86900; 87426; 88304; 88311; 93970; 95863; 95925; 95926; 95928; 95929; 95940; 97116; 97162; 97166; 97530; 97535; C9113; J0360; J0690; J1100; J1170; J1580; J2175; J2270; J2405; J2543; J2710; J3490; J7060; J7121; P9047

== ENCOUNTER 2020-10-25 21:45 | Inpatient (IN) | payer MEDICARE, MEDICAID ==
[~2020-10-25] VITALS: Ht 165.1 cm; Wt 112.5 kg
[~2020-10-25 21:45] MED LIST changes: +BLOOD PRESSURE; +CHOL400D7 PO; -CHOL500063 PO; +ERGO500013 PO; +GABA-290 PO; +HYDR25TA PO; -LINA290C PO; -OLME40TA18 PO
[2020-10-25 22:00] VITALS: BP 148/71
[2020-10-25] MEDS ORDERED: LACTULOSE 20G/30ML UDC PO PRN (23:15)
[2020-10-25] MEDS ORDERED: ACETAMINOPHEN 325MG TABLET PO PRN ×2 (23:15)
[2020-10-25] MEDS ORDERED: IPRATROPIUM/ALBUTEROL 0.5-3(2.5)MG/3ML NEB HHN PRN (23:15)
[2020-10-26] MEDS: HYDROCODONE/ACETAMINOPHEN 5/325MG TABLET PO PRN ×3 (00:17→16:29)
[2020-10-26] MEDS: MORPHINE SULFATE 4 MG/ML CPJ (NOT FOR IM USE) IV PRN ×2 (04:12→13:00)
[2020-10-26 07:51] LABS: BASOPHILS % 0.6 % (0.0-2.0); EOSINOPHILS % 2.7 % (0.0-5.0); HEMATOCRIT. 27.9 % (36.0-48.0); HEMOGLOBIN. 9.2 g/dL (12.0-16.0); LYMPHOCYTES % 27.3 % (20.0-50.0); MEAN CORPUSCULAR HEMOGLOBIN 26.4 pg (28.0-32.0); MEAN CORPUSCULAR VOLUME 80.1 fL (81.0-99.0); MEAN PLATELET VOLUME 9.3 fl (7.4-10.4); MONOCYTES % 9.9 % (2.0-8.0); NEUTROPHILS % 59.5 % (40.0-76.0); PLATELET 173 x1000/uL (130-400); RED BLOOD CELL COUNT 3.49 mill/uL (4.2-5.4)
[2020-10-26 08:00] VITALS: BP 138/59
[2020-10-26] MEDS: BENAZEPRIL 10MG TABLET PO SCH (08:40)
[2020-10-26] MEDS: PANTOPRAZOLE SODIUM 40 MG/VIAL IV SCH (08:40)
[2020-10-26] MEDS: AMLODIPINE 10MG TABLET PO SCH (08:41)
[2020-10-26 08:59] LABS: CHLORIDE 105 mEq/L (98-107)
[2020-10-26] MEDS ORDERED: NA PHOS,M-B/NA PHOS,DI-BA ENEMA 118ML PR PRN (16:00)
[2020-10-26] MEDS ORDERED: LACTULOSE 20G/30ML UDC PO PRN (16:00)
[2020-10-26] MEDS: DOCUSATE SODIUM 100MG CAPSULE PO SCH (16:28)
[2020-10-26] MEDS: BISACODYL 5MG TABLET PO PRN (17:13)
[2020-10-26 20:00] VITALS: BP 122/47
[2020-10-27] MEDS: MORPHINE SULFATE 4 MG/ML CPJ (NOT FOR IM USE) IV PRN ×2 (00:11→14:59)
[2020-10-27 01:00] VITALS: BP 155/52
[2020-10-27] MEDS: BISACODYL 5MG TABLET PO PRN (06:25)
[2020-10-27] MEDS: HYDROCODONE/ACETAMINOPHEN 5/325MG TABLET PO PRN ×2 (06:26→21:26)
[2020-10-27 07:56] VITALS: BP 138/50
[2020-10-27] MEDS ORDERED: LACTULOSE 20G/30ML UDC PO SCH (08:00)
[2020-10-27] MEDS: PANTOPRAZOLE SODIUM 40 MG/VIAL IV SCH (08:24)
[2020-10-27] MEDS: BENAZEPRIL 10MG TABLET PO SCH (08:24)
[2020-10-27] MEDS: AMLODIPINE 10MG TABLET PO SCH (08:24)
[2020-10-27] MEDS: DOCUSATE SODIUM 100MG CAPSULE PO SCH ×2 (08:26→17:00)
[2020-10-27 20:00] VITALS: BP 162/73
[2020-10-28] MEDS: PANTOPRAZOLE 40MG DR TABLET PO SCH (06:00)
[2020-10-28] MEDS: HYDROCODONE/ACETAMINOPHEN 5/325MG TABLET PO PRN (06:06)
[2020-10-28 06:34] LABS: CHLORIDE 105 mEq/L (98-107)
[2020-10-28 06:39] LABS: BASOPHILS % 0.6 % (0.0-2.0); HEMATOCRIT. 28.2 % (36.0-48.0); LYMPHOCYTES % 27.1 % (20.0-50.0); MEAN CORPUSCULAR HEMOGLOBIN 26.1 pg (28.0-32.0); MEAN CORPUSCULAR VOLUME 81.8 fL (81.0-99.0); MEAN PLATELET VOLUME 9.1 fl (7.4-10.4); MONOCYTES % 10.7 % (2.0-8.0); NEUTROPHILS % 59.6 % (40.0-76.0); PLATELET 195 x1000/uL (130-400); RED BLOOD CELL COUNT 3.45 mill/uL (4.2-5.4); RED CELL DISTRIBUTION WIDTH 16.9 % (11.6-14.6)
[2020-10-28 07:59] VITALS: BP 138/45
[2020-10-28] MEDS: BENAZEPRIL 10MG TABLET PO SCH (08:10)
[2020-10-28] MEDS: AMLODIPINE 10MG TABLET PO SCH (08:10)
[2020-10-28] MEDS: MORPHINE SULFATE 4 MG/ML CPJ (NOT FOR IM USE) IV PRN ×2 (08:16→15:05)
[2020-10-28] MEDS: DOCUSATE SODIUM 100MG CAPSULE PO SCH ×2 (08:16→16:16)
[2020-10-28 20:00] VITALS: BP 136/54
[2020-10-29] MEDS: HYDROCODONE/ACETAMINOPHEN 5/325MG TABLET PO PRN ×3 (01:52→22:20)
[2020-10-29] MEDS: PANTOPRAZOLE 40MG DR TABLET PO SCH (06:27)
[2020-10-29 08:25] VITALS: BP 122/47
[2020-10-29] MEDS: AMLODIPINE 10MG TABLET PO SCH (08:36)
[2020-10-29] MEDS: BENAZEPRIL 10MG TABLET PO SCH (08:36)
[2020-10-29] MEDS: MORPHINE SULFATE 4 MG/ML CPJ (NOT FOR IM USE) IV PRN (08:39)
[2020-10-29] MEDS: DOCUSATE SODIUM 100MG CAPSULE PO SCH ×2 (08:39→17:00)
[2020-10-29 20:00] VITALS: BP 140/49
[2020-10-30] MEDS: HYDROCODONE/ACETAMINOPHEN 5/325MG TABLET PO PRN ×2 (06:35→18:45)
[2020-10-30 07:54] VITALS: BP 127/52
[2020-10-30] MEDS: DOCUSATE SODIUM 100MG CAPSULE PO SCH ×3 (09:00→17:36)
[2020-10-30] MEDS: AMLODIPINE 10MG TABLET PO SCH (11:06)
[2020-10-30] MEDS: BENAZEPRIL 10MG TABLET PO SCH (11:06)
[2020-10-30] MEDS: FAMOTIDINE 20MG TABLET PO SCH ×2 (11:07→20:43)
[2020-10-30 20:00] VITALS: BP 149/50
[2020-10-31] MEDS ORDERED: MORPHINE SULFATE 4 MG/ML CPJ (NOT FOR IM USE) IV PRN (06:00)
[2020-10-31] MEDS ORDERED: HYDROCODONE/ACETAMINOPHEN 5/325MG TABLET PO PRN (06:00)
[2020-10-31 08:00] VITALS: BP 134/44
[2020-10-31] MEDS: DOCUSATE SODIUM 100MG CAPSULE PO SCH ×3 (09:00→17:00)
[2020-10-31] MEDS: FAMOTIDINE 20MG TABLET PO SCH ×2 (09:02→21:40)
[2020-10-31] MEDS: AMLODIPINE 10MG TABLET PO SCH (09:08)
[2020-10-31] MEDS: BENAZEPRIL 10MG TABLET PO SCH (09:08)
[2020-10-31] MEDS: ONDANSETRON HCL 4MG/2ML INJ IV PRN (15:02)
[2020-10-31] MEDS: MORPHINE SULFATE 4 MG/ML CPJ (NOT FOR IM USE) IV PRN ×2 (18:28→23:41)
[2020-10-31 20:00] VITALS: BP 138/60
[2020-11-01] MEDS: MORPHINE SULFATE 4 MG/ML CPJ (NOT FOR IM USE) IV PRN (07:16)
[2020-11-01 08:00] VITALS: BP 119/49
[2020-11-01] MEDS: FAMOTIDINE 20MG TABLET PO SCH ×2 (08:23→21:18)
[2020-11-01] MEDS: DOCUSATE SODIUM 100MG CAPSULE PO SCH ×3 (08:23→16:54)
[2020-11-01] MEDS: AMLODIPINE 10MG TABLET PO SCH (08:24)
[2020-11-01] MEDS: BENAZEPRIL 10MG TABLET PO SCH (08:24)
[2020-11-01] MEDS: ONDANSETRON HCL 4MG/2ML INJ IV PRN (17:23)
[2020-11-01 20:00] VITALS: BP 138/47
[2020-11-02] MEDS: HYDROCODONE/ACETAMINOPHEN 5/325MG TABLET PO PRN ×2 (06:51→20:17)
[2020-11-02 06:55] LABS: BASOPHILS % 0.8 % (0.0-2.0); EOSINOPHILS % 2.2 % (0.0-5.0); HEMOGLOBIN. 9.2 g/dL (12.0-16.0); LYMPHOCYTES % 32.8 % (20.0-50.0); MEAN CORPUSCULAR HEMOGLOBIN 26.2 pg (28.0-32.0); MEAN CORPUSCULAR VOLUME 82.3 fL (81.0-99.0); MEAN PLATELET VOLUME 9.2 fl (7.4-10.4); MONOCYTES % 7.4 % (2.0-8.0); NEUTROPHILS % 56.8 % (40.0-76.0); PLATELET 232 x1000/uL (130-400); RED BLOOD CELL COUNT 3.53 mill/uL (4.2-5.4); RED CELL DISTRIBUTION WIDTH 17.6 % (11.6-14.6)
[2020-11-02 07:48] VITALS: BP 117/50
[2020-11-02] MEDS: DOCUSATE SODIUM 100MG CAPSULE PO SCH ×3 (09:00→16:00)
[2020-11-02] MEDS: BENAZEPRIL 10MG TABLET PO SCH (09:16)
[2020-11-02] MEDS: FAMOTIDINE 20MG TABLET PO SCH ×2 (09:16→20:14)
[2020-11-02] MEDS: AMLODIPINE 10MG TABLET PO SCH (09:16)
[2020-11-02 20:00] VITALS: BP 134/41
[2020-11-03 08:22] VITALS: BP 133/61
[2020-11-03] MEDS: DOCUSATE SODIUM 100MG CAPSULE PO SCH ×2 (09:00→17:19)
[2020-11-03] MEDS: FAMOTIDINE 20MG TABLET PO SCH ×2 (09:45→22:36)
[2020-11-03] MEDS: AMLODIPINE 10MG TABLET PO SCH (09:45)
[2020-11-03] MEDS: BENAZEPRIL 10MG TABLET PO SCH (09:46)
[2020-11-03] MEDS: HYDROCODONE/ACETAMINOPHEN 5/325MG TABLET PO PRN ×2 (09:51→21:58)
[2020-11-03 20:00] VITALS: BP 154/54
[2020-11-04] MEDS: HYDROCODONE/ACETAMINOPHEN 5/325MG TABLET PO PRN (04:59)
[2020-11-04 06:11] LABS: BASOPHILS % 0.6 % (0.0-2.0); EOSINOPHILS % 1.4 % (0.0-5.0); HEMATOCRIT. 29.4 % (36.0-48.0); HEMOGLOBIN. 9.1 g/dL (12.0-16.0); LYMPHOCYTES % 25.7 % (20.0-50.0); MEAN CORPUSCULAR HEMOGLOBIN 25.3 pg (28.0-32.0); MEAN CORPUSCULAR VOLUME 81.4 fL (81.0-99.0); MEAN PLATELET VOLUME 8.8 fl (7.4-10.4); MONOCYTES % 8.1 % (2.0-8.0); NEUTROPHILS % 64.2 % (40.0-76.0); PLATELET 247 x1000/uL (130-400); RED BLOOD CELL COUNT 3.61 mill/uL (4.2-5.4); RED CELL DISTRIBUTION WIDTH 17.7 % (11.6-14.6)
[2020-11-04 07:39] VITALS: BP 143/50
[2020-11-04] MEDS: BENAZEPRIL 10MG TABLET PO SCH (08:52)
[2020-11-04] MEDS: FAMOTIDINE 20MG TABLET PO SCH ×2 (08:53→20:15)
[2020-11-04] MEDS: DOCUSATE SODIUM 100MG CAPSULE PO SCH ×3 (08:53→17:00)
[2020-11-04] MEDS: AMLODIPINE 10MG TABLET PO SCH (08:53)
[2020-11-04] MEDS: MORPHINE SULFATE 4 MG/ML CPJ (NOT FOR IM USE) IV PRN (08:58)
[2020-11-04 20:00] VITALS: BP 146/49
[2020-11-05 07:58] VITALS: BP 144/55
[2020-11-05] MEDS: HYDROCODONE/ACETAMINOPHEN 5/325MG TABLET PO PRN ×2 (08:14→18:14)
[2020-11-05] MEDS: DOCUSATE SODIUM 100MG CAPSULE PO SCH ×2 (08:42→17:00)
[2020-11-05] MEDS: AMLODIPINE 10MG TABLET PO SCH (08:44)
[2020-11-05] MEDS: FAMOTIDINE 20MG TABLET PO SCH ×2 (08:44→21:13)
[2020-11-05] MEDS: BENAZEPRIL 10MG TABLET PO SCH (09:27)
[2020-11-05 20:00] VITALS: BP 161/59
[2020-11-06] MEDS: BENAZEPRIL 10MG TABLET PO SCH (08:08)
[2020-11-06] MEDS: FAMOTIDINE 20MG TABLET PO SCH (08:08)
[2020-11-06] MEDS: AMLODIPINE 10MG TABLET PO SCH (08:08)
[2020-11-06] MEDS: DOCUSATE SODIUM 100MG CAPSULE PO SCH (08:09)
[2020-11-06] MEDS: HYDROCODONE/ACETAMINOPHEN 5/325MG TABLET PO PRN (08:09)
[2020-11-06 08:27] VITALS: BP 147/64
[2020-11-06 10:22] VITALS: BP 147/64
== END 2020-11-06 11:30 | disposition home health service (06) | DRG 552 ==
PROVIDERS: ADMIT Psychiatry & Neurology Neurology; ATTEND Internal Medicine
DX: M48.061 Spinal stenosis, lumbar region without neurogenic claudication (principal); N17.9 Acute kidney failure, unspecified; Z68.41 Body mass index [BMI] 40.0-44.9, adult; M54.16 Radiculopathy, lumbar region; I12.9 Hypertensive chronic kidney disease with stage 1 through stage 4 chronic kidney disease, or unspecified chronic kidney disease; E11.22 Type 2 diabetes mellitus with diabetic chronic kidney disease; N18.9 Chronic kidney disease, unspecified; G89.4 Chronic pain syndrome; E66.01 Morbid (severe) obesity due to excess calories; R32 Unspecified urinary incontinence; R15.9 Full incontinence of feces; K59.00 Constipation, unspecified; D64.9 Anemia, unspecified; E78.5 Hyperlipidemia, unspecified; E87.6 Hypokalemia; F39 Unspecified mood [affective] disorder; M43.16 Spondylolisthesis, lumbar region; Z96.651 Presence of right artificial knee joint; M19.011 Primary osteoarthritis, right shoulder; Z85.3 Personal history of malignant neoplasm of breast; Z79.899 Other long term (current) drug therapy
CPT/HCPCS: 36415; 80048; 83735; 84100; 85025; 97110; 97116; 97162; 97166; 97530; 97535; C9113; J2270; J2405

== ENCOUNTER → 2021-02-11 | Outpatient (CLI) | payer MEDICARE, MEDICAID ==
[~2021-02-11] MED LIST changes: -BLOOD PRESSURE; -CHOL400D7 PO; -HYDR25TA PO
== END | disposition home or self-care (01) ==
LOC: NM 07:30
PROVIDERS: ATTEND Orthopaedic Surgery
DX: M25.561 Pain in right knee (principal); Z79.899 Other long term (current) drug therapy; Z72.89 Other problems related to lifestyle; Z82.49 Family history of ischemic heart disease and other diseases of the circulatory system; Z83.3 Family history of diabetes mellitus
CPT/HCPCS: 78315; A9503; C1893

== ENCOUNTER → 2022-09-24 | Outpatient (CLI) | payer MEDICARE, MEDICAID ==
[~2022-09-24] MED LIST changes: -BENA40TA9 PO; +BENA40TA91 PO; +ERGO1250 PO; -ERGO500013 PO
== END | disposition home or self-care (01) ==
LOC: MRI 12:37
PROVIDERS: ATTEND Neurological Surgery
DX: M47.812 Spondylosis without myelopathy or radiculopathy, cervical region (principal); M48.03 Spinal stenosis, cervicothoracic region; M47.816 Spondylosis without myelopathy or radiculopathy, lumbar region; M48.07 Spinal stenosis, lumbosacral region; Z98.890 Other specified postprocedural states
CPT/HCPCS: 72141; 72148